=== PATIENT | female | born 1980 | race Caucasian/White ===

== ENCOUNTER 2018-01-30 10:09 | Observation (INO) | payer OTHER ==
[2018-01-30] MEDS ORDERED: SODIUM CHLORIDE 0.9% 500 ML IV STA (10:49)
[2018-01-30] MEDS ORDERED: ONDANSETRON 4 MG/2 ML VIAL IVP STA (10:49)
[2018-01-30] MEDS ORDERED: HYDROmorphone 0.5 MG/0.5 ML SYRINGE IVP STA (10:49)
--- NOTE | 2018-01-30 10:58 | ED ---
General Adult HPI - General Chief complaint: Abdominal Pain Stated complaint: LOWER ABDOMINAL PAIN Time Seen by Provider: 01/30/18 10:20 Source: patient, RN notes reviewed Mode of arrival: ambulatory Limitations: no limitations - History of Present Illness Initial comments: This is a 37-year-old female presents emergency Department with no previous. abdominal surgeries. Patient states last evening she started having right lower quadrant abdominal pain and it Progressively worse. Patient states she was able to fall sleep at midnight and the pain kept her the rest of the night. Patient states the drive here was extremely painful anytime a bump was. Patient states she's not nauseous and she is not had any vomiting or diarrhea. Patient denies any fever or chills. Patient denies any chest pain difficulty breathing shortness of breath. Patient denies any dysuria hematuria urinary frequency. - Related Data Home Medications Medication Instructions Recorded Confirmed No Known Home Medications [No 01/30/18 01/30/18 Known Home Medications] Allergies Allergy/AdvReac Type Severity Reaction Status Date / Time bacitracin Allergy Rash/Hives Verified 01/30/18 12:17 [From Neosporin ([id number])] neomycin Allergy Rash/Hives Verified 01/30/18 12:17 [From Neosporin ([id number])] polymyxin B Allergy Rash/Hives Verified 01/30/18 12:17 [From Neosporin ([id number])] Review of Systems ROS Statement: Those systems with pertinent positive or pertinent negative responses have been documented in the HPI. ROS Other: All systems not noted in ROS Statement are negative. Past Medical History Past Medical History: No Reported History History of Any Multi-Drug Resistant Organisms: None Reported Additional Past Surgical History / Comment(s): back sx Past Psychological History: No Psychological Hx Reported Smoking Status: Never smoker Past Alcohol Use History: Occasional General Exam - General Exam Comments Initial Comments: GENERAL: Patient is well-developed and well-nourished. Patient is nontoxic and well- hydrated and is in mild distress. ENT: Neck is soft and supple. No significant lymphadenopathy is noted. Oropharynx is clear. Moist mucous membranes. Neck has full range of motion without eliciting any pain. EYES: The sclera were anicteric and conjunctiva were pink and moist. Extraocular movements were intact and pupils were equal round and reactive to light. Eyelids were unremarkable. PULMONARY: Unlabored respirations. Good breath sounds bilaterally. No audible rales rhonchi or wheezing was noted. CARDIOVASCULAR: There is a regular rate and rhythm without any murmurs gallops or rubs. ABDOMEN: Patient's right lower quadrant tenderness with rebound.. No palpable organomegaly was noted. There is no palpable pulsatile mass. SKIN: Skin is clear with no lesions or rashes and otherwise unremarkable. NEUROLOGIC: Patient is alert and oriented x3. Cranial nerves II through XII are grossly intact. Motor and sensory are also intact. Normal speech, volume and content. Symmetrical smile. MUSCULOSKELETAL: Normal extremities with adequate strength and full range of motion. No lower extremity swelling or edema. No calf tenderness. LYMPHATICS: No significant lymphadenopathy is noted PSYCHIATRIC: Normal psychiatric evaluation. Normal interpersonal interactions appears functionally intact in deals appropriately with others. No signs of depression. No signs of anxiety. Limitations: no limitations Course Vital Signs 01/30/18 10:23 Temperature 98.2 F Pulse Rate 79 Respiratory 18 Rate Blood Pressure 107/62 O2 Sat by Pulse 100 Oximetry Medical Decision Making - Medical Decision Making CAT scan shows some inflammation and some thickening of the ileocecal junction. However the appendix couldn't be visualized. I went back into reevaluate the patient she was still having rebound tenderness in the right lower quadrant. I admitted the patient because of concern for acute appendicitis Dr. Roa accepted the patient I wrote admitting orders. - Lab Data Result diagrams: 01/30/18 10:40 01/30/18 10:40 Lab Results 01/30/18 01/30/18 01/30/18 Range/Units 10:40 10:40 10:40 WBC 6.7 (3.8-10.6) k/uL RBC 4.41 (3.80-5.40) m/uL Hgb 13.3 (11.4-16.0) gm/dL Hct 39.9 (34.0-46.0) % MCV 90.6 (80.0-100.0) fL MCH 30.2 (25.0-35.0) pg MCHC 33.4 (31.0-37.0) g/dL RDW 13.5 (11.5-15.5) % Plt Count 161 (150-450) k/uL Neutrophils % 71 % Lymphocytes % 22 % Monocytes % 5 % Eosinophils % 0 % Basophils % 0 % Neutrophils # 4.8 (1.3-7.7) k/uL Lymphocytes # 1.5 (1.0-4.8) k/uL Monocytes # 0.4 (0-1.0) k/uL Eosinophils # 0.0 (0-0.7) k/uL Basophils # 0.0 (0-0.2) k/uL Sodium 141 (137-145) mmol/L Potassium 4.1 (3.5-5.1) mmol/L Chloride 106 (98-107) mmol/L Carbon Dioxide 24 (22-30) mmol/L Anion Gap 11 mmol/L BUN 10 (7-17) mg/dL Creatinine 0.70 (0.52-1.04) mg/dL Est GFR (CKD-EPI)AfAm >90 (>60 ml/min/1.73 sqM) Est GFR (CKD-EPI)NonAf >90 (>60 ml/min/1.73 sqM) Glucose 85 (74-99) mg/dL Calcium 9.3 (8.4-10.2) mg/dL Total Bilirubin 0.7 (0.2-1.3) mg/dL AST 29 (14-36) U/L ALT 32 (9-52) U/L Alkaline Phosphatase 53 (38-126) U/L Total Protein 6.9 (6.3-8.2) g/dL Albumin 4.4 (3.5-5.0) g/dL Amylase 44 (30-110) U/L Lipase 62 (23-300) U/L Urine Color Light Yellow Urine Appearance Clear (Clear) Urine pH 7.5 (5.0-8.0) Ur Specific Golden 1.005 (1.001-1.035) Urine Protein Negative (Negative) Urine Glucose (UA) Negative (Negative) Urine Ketones Negative (Negative) Urine Blood Negative (Negative) Urine Nitrite Negative (Negative) Urine Bilirubin Negative (Negative) Urine Urobilinogen <2.0 (<2.0) mg/dL Ur Leukocyte Esterase Negative (Negative) Disposition Clinical Impression: Acute abdomen Disposition: ADMITTED IP TO THIS [facility] Referrals: Alberto Stanton MD [Primary Care Provider] - 1-2 days Time of Disposition: 12:47
[2018-01-30 11:17] LABS: Basophils % (A) 0 %; Eosinophils % (A) 0 %; HCT 39.9 % (34.0-46.0); HGB 13.3 gm/dL (11.4-16.0); Lymphocytes # (A) 1.5 k/uL (1.0-4.8); Lymphocytes % (A) 22 %; MCH 30.2 pg (25.0-35.0); MCHC 33.4 g/dL (31.0-37.0); MCV 90.6 fL (80.0-100.0); Mean Platelet Volume 9.4; Monocytes # (A) 0.4 k/uL (0-1.0); Monocytes % (A) 5 %; Neutrophils # (A) 4.8 k/uL (1.3-7.7); Neutrophils % (A) 71 %; Platelet Count 161 k/uL (150-450); RBC 4.41 m/uL (3.80-5.40); RDW 13.5 % (11.5-15.5); WBC 6.7 k/uL (3.8-10.6)
[2018-01-30 11:22] LABS: Appearance,Urine Clear (Clear); Bilirubin,Urine Negative (Negative); Blood,Urine Negative (Negative); Color,Urine Light Yellow; Glucose,Urine (UA) Negative (Negative); Ketones,Urine Negative (Negative); Leukocyte Esterase,Urine Negative (Negative); Nitrite,Urine Negative (Negative); PH, Urine 7.5 (5.0-8.0); Protein,Urine Negative (Negative); Specific Gravity,Urine 1.005 (1.001-1.035); Urobilinogen,Urine <2.0 mg/dL (<2.0)
[2018-01-30 11:28] LABS: ALT 32 U/L (9-52); AST 29 U/L (14-36); Albumin 4.4 g/dL (3.5-5.0); Alkaline Phosphatase 53 U/L (38-126); Amylase 44 U/L (30-110); Anion Gap 11 mmol/L; Blood Urea Nitrogen 10 mg/dL (7-17); Calcium 9.3 mg/dL (8.4-10.2); Carbon Dioxide 24 mmol/L (22-30); Chloride 106 mmol/L (98-107); Glucose 85 mg/dL (74-99); Lipase 62 U/L (23-300); Potassium 4.1 mmol/L (3.5-5.1); Sodium 141 mmol/L (137-145); Total Bilirubin 0.7 mg/dL (0.2-1.3); Total Protein 6.9 g/dL (6.3-8.2)
--- NOTE | 2018-01-30 12:07 | CT ---
EXAMINATION TYPE: CT abdomen pelvis w con DATE OF EXAM: 01/30/2018 COMPARISON: NONE HISTORY: 37-year-old female Right lower quadrant pain TECHNIQUE: Contiguous axial scanning of the abdomen and pelvis following administration of 100 ml Iso sonido 300 IV contrast. Delayed images through the kidneys and coronal/sagittal reconstructions perform ed. CT DLP: 1106 mGycm Automated exposure control for dose reduction was used. FINDINGS: Heart normal size without pericardial effusion. 6 mm subpleural pulmonary nodule, axial image 5, posterior left lower lobe probably represents an are a of nodular atelectasis. No pleural effusion. 1.2 cm lobulated cyst left hepatic dome. Additional 1.5 cm right hepatic lobe cyst. Portal venous sys tem is patent. No biliary ductal dilatation. Gallbladder, adrenal glands, left kidney, and pancreas show no gross abnormality. Spleen upper limits of normal in size at 13.8 cm. Partial duplication of the right renal collecting system. 2 ureters combine at the upper ureteric lev el. Subcentimeter hypodensity lateral right kidney too small for accurate CT characterization, likely tiny cyst. The appendix is not discretely visualized. However, there is some focal wall thickening along the cec um and at the ileocecal junction, for example, axial image 45 and 50. Some mild fat stranding is pres ent near as well. Scattered nonenlarged mesenteric lymph nodes are noted. Mild stool burden. Uterus is anteverted. Prominent left periuterine varices with a dilated left gonadal vein. Crenulated peripherally enhancing 1.4 cm lesion in the left ovary suggestive of a corpus luteum or recently rup tured follicle. There is small to moderate pelvic free fluid likely physiologic. Right ovary not well delineated from small bowel loops. Bladder is urine distended. Bones: Degenerative disc disease L5-S1. No osseous destructive process. IMPRESSION: 1. Some cecal and ileocecal wall thickening with mild adjacent inflammation. Correlate for colitis/en terocolitis rather than acute appendicitis as the appendix could not be discretely visualized. Short interval follow-up as clinically indicated. 2. Large left parauterine varices and a dilated left gonadal vein can be seen in the setting of pelvi c congestion syndrome. 3. Mild to moderate cul-de-sac free fluid probably physiologic given findings in the left ovary sugge sting a recently ruptured follicle or corpus luteum.
[2018-01-30] MEDS ORDERED: PIPERACILLIN-TAZOBACTAM 3.375 GM in DEXTROSE/WATER 1 50ML.BAG IVPB STA (12:51)
[2018-01-30] MEDS ORDERED: SODIUM CHLORIDE 0.9% 1,000 ML IV ONE (12:51)
[2018-01-30 14:13] VITALS: BMI 24.3
[2018-01-30] MEDS: HYDROmorphone 0.5 MG/0.5 ML SYRINGE IVP PRN ×4 (14:15→23:41)
[2018-01-30] MEDS ORDERED: ONDANSETRON 4 MG/2 ML VIAL IVP PRN (20:38)
--- NOTE | 2018-01-30 20:38 | P.GSHP ---
History of Present Illness H&P Date: 01/30/18 37-year-old female presented to the emergency department with complaints of sudden onset of abdominal pain. She states that the pain was in the right lower quadrant. She denied any nausea episodes and denied any emesis. She states she has never had this pain previously. She states that she has been having normal bowel function. She states she has not had bowel function since the pain began. She denies ever having a colonoscopy. She denies any inflammatory bowel disease. She is currently seen while in the hospital bed and is comfortable with pain medication. She denies any fevers, chills, chest pain or shortness of breath. Her laboratory values do not show a leukocytosis. She does not have a left shift. - Review of Systems All systems: negative Past Medical History Past Medical History: No Reported History History of Any Multi-Drug Resistant Organisms: None Reported Additional Past Surgical History / Comment(s): back sx Past Psychological History: No Psychological Hx Reported Smoking Status: Never smoker Past Alcohol Use History: Occasional Medications and Allergies Home Medications Medication Instructions Recorded Confirmed Type No Known Home Medications [No 01/30/18 01/30/18 History Known Home Medications] Allergies Allergy/AdvReac Type Severity Reaction Status Date / Time bacitracin Allergy Rash/Hives Verified 01/30/18 12:17 [From Neosporin ([id number])] neomycin Allergy Rash/Hives Verified 01/30/18 12:17 [From Neosporin ([id number])] polymyxin B Allergy Rash/Hives Verified 01/30/18 12:17 [From Neosporin ([id number])] Surgical - Exam Osteopathic Statement: *. No significant issues noted on an osteopathic structural exam other than those noted in the History and Physical/Consult. Vital Signs Temp Pulse Resp BP Pulse Ox 98.2 F 79 18 107/62 100 01/30/18 10:23 01/30/18 10:23 01/30/18 10:23 01/30/18 10:23 01/30/18 10:23 - General well nourished, no distress - Eyes normal ocular movement - ENT normal mucosa, no hearing loss - Neck trachea midline - Respiratory No difficulty with respiration - Abdomen Soft, tender to palpation and percussion in the right lower quadrant, nondistended, no rebound, no guarding - Neurologic normal sensation - Psychiatric oriented to time, oriented to person, oriented to place, speech is normal Results - Labs 01/30/18 10:40 01/30/18 10:40 Diabetes panel 01/30/18 Range/Units 10:40 Sodium 141 (137-145) mmol/L Potassium 4.1 (3.5-5.1) mmol/L Chloride 106 (98-107) mmol/L Carbon Dioxide 24 (22-30) mmol/L BUN 10 (7-17) mg/dL Creatinine 0.70 (0.52-1.04) mg/dL Glucose 85 (74-99) mg/dL Calcium 9.3 (8.4-10.2) mg/dL AST 29 (14-36) U/L ALT 32 (9-52) U/L Alkaline Phosphatase 53 (38-126) U/L Total Protein 6.9 (6.3-8.2) g/dL Albumin 4.4 (3.5-5.0) g/dL Calcium panel 01/30/18 Range/Units 10:40 Calcium 9.3 (8.4-10.2) mg/dL Albumin 4.4 (3.5-5.0) g/dL Pituitary panel 01/30/18 Range/Units 10:40 Sodium 141 (137-145) mmol/L Potassium 4.1 (3.5-5.1) mmol/L Chloride 106 (98-107) mmol/L Carbon Dioxide 24 (22-30) mmol/L BUN 10 (7-17) mg/dL Creatinine 0.70 (0.52-1.04) mg/dL Glucose 85 (74-99) mg/dL Calcium 9.3 (8.4-10.2) mg/dL Adrenal panel 01/30/18 Range/Units 10:40 Sodium 141 (137-145) mmol/L Potassium 4.1 (3.5-5.1) mmol/L Chloride 106 (98-107) mmol/L Carbon Dioxide 24 (22-30) mmol/L BUN 10 (7-17) mg/dL Creatinine 0.70 (0.52-1.04) mg/dL Glucose 85 (74-99) mg/dL Calcium 9.3 (8.4-10.2) mg/dL Total Bilirubin 0.7 (0.2-1.3) mg/dL AST 29 (14-36) U/L ALT 32 (9-52) U/L Alkaline Phosphatase 53 (38-126) U/L Total Protein 6.9 (6.3-8.2) g/dL Albumin 4.4 (3.5-5.0) g/dL - Imaging CT scan - abdomen: report reviewed, image reviewed (CT of the abdomen and pelvis is reviewed with thickening of the ileocecal region. Colitis versus enteritis is noted.) CT scan - pelvis: report reviewed, image reviewed Assessment and Plan (1) Colitis Narrative/Plan: 37-year-old female with right lower quadrant pain and CT abdomen finding of colitis - Continue antibiotic of Zosyn - Continue IV fluids - Pain control - Keep patient nothing by mouth for now - Will continue serial abdominal exams - Further recommendations after patient has received antibiotic dosage and is kept nothing by mouth Current Visit: Yes Status: Acute Code(s): K52.9 - NONINFECTIVE GASTROENTERITIS AND COLITIS, UNSPECIFIED SNOMED Code(s): 04001498
[2018-01-30] MEDS: PIPERACILLIN-TAZOBACTAM 3.375 GM in DEXTROSE/WATER 1 50ML.BAG IVPB SCH (23:33)
[2018-01-30] MEDS: SODIUM CHLORIDE 0.9% 1,000 ML IV SCH (23:33)
[2018-01-31 07:34] LABS: Basophils % (A) 0 %; Eosinophils % (A) 1 %; HCT 35.4 % (34.0-46.0); HGB 11.6 gm/dL (11.4-16.0); Lymphocytes # (A) 1.3 k/uL (1.0-4.8); Lymphocytes % (A) 40 %; MCH 30.5 pg (25.0-35.0); MCHC 32.7 g/dL (31.0-37.0); MCV 93.4 fL (80.0-100.0); Mean Platelet Volume 8.8; Monocytes # (A) 0.2 k/uL (0-1.0); Monocytes % (A) 5 %; Neutrophils # (A) 1.7 k/uL (1.3-7.7); Neutrophils % (A) 52 %; Platelet Count 123 k/uL (150-450); RBC 3.79 m/uL (3.80-5.40); RDW 13.9 % (11.5-15.5); WBC 3.3 k/uL (3.8-10.6)
[2018-01-31 07:38] LABS: Anion Gap 10 mmol/L; Blood Urea Nitrogen 10 mg/dL (7-17); Calcium 8.5 mg/dL (8.4-10.2); Carbon Dioxide 24 mmol/L (22-30); Chloride 105 mmol/L (98-107); Glucose 72 mg/dL (74-99); Potassium 3.7 mmol/L (3.5-5.1); Sodium 139 mmol/L (137-145)
[2018-01-31] MEDS: PIPERACILLIN-TAZOBACTAM 3.375 GM in DEXTROSE/WATER 1 50ML.BAG IVPB SCH ×2 (08:14→15:07)
[2018-01-31] MEDS: SODIUM CHLORIDE 0.9% 1,000 ML IV SCH ×2 (08:14→18:12)
[2018-01-31] MEDS ORDERED: ACETAMINOPHEN IV (For NPO) 1,000 MG in EMPTY BAG 1 BAG IVPB SCH (09:00)
[2018-01-31] MEDS ORDERED: ACETAMINOPHEN IV (For NPO) 1,000 MG in EMPTY BAG 1 BAG IVPB PRN (09:54)
[2018-01-31 14:45] VITALS: RESP 16
--- NOTE | 2018-01-31 16:07 | P.PN ---
Subjective Progress Note Date: 01/31/18 Patient seen and examined at bedside. She states that her abdominal pain is mostly resolved today. She states she has a very mild achy feeling in her right lower quadrant, but greatly improved from previous exam. She denies any nausea or emesis. The patient states that she is hungry. She states that she is having flatus but has not had a bowel movement. Objective - Vital Signs Vital signs: Vital Signs Temp 97.1 F L 01/31/18 14:45 Pulse 74 01/31/18 14:45 Resp 16 01/31/18 14:45 BP 118/60 01/31/18 14:45 Pulse Ox 99 01/31/18 14:45 Intake & Output 01/30/18 01/31/18 01/31/18 18:59 06:59 18:59 Intake Total 20 2710 930 Balance 20 2710 930 Weight 70.307 kg Intake: Intake, IV Titration 20 1480 750 Amount Piperacillin-Tazobactam 3 50 50 .375 gm In Dextrose/Water 1 50ml.bag @ 12.5 mls/hr IVPB Q8HR [facility] Rx#: [id number] Sodium Chloride 0.9% 1, 20 000 ml @ 100 mls/hr IV . Q10H [facility] Rx#:[id number] Sodium Chloride 0.9% 1, 1430 700 000 ml @ 100 mls/hr IV . Q10H [facility] Rx#:[id number] Oral 1230 180 Other: Voiding Method Toilet Toilet # Voids 1 2 1 # Bowel Movements 0 # Emeses 0 - Constitutional General appearance: Present: cooperative, no acute distress - EENT Eyes: Present: PERRLA ENT: Present: hearing grossly normal - Neck Neck: Present: normal ROM - Respiratory Details: No difficulty with respiration - Gastrointestinal Gastrointestinal Comment(s): Nontender to palpation, and nontender to percussion, soft, nondistended, no rebound, no guarding - Psychiatric Psychiatric: Present: A&O x's 3, appropriate affect - Labs CBC & Chem 7: 01/31/18 06:33 01/31/18 06:33 Labs: Abnormal Lab Results - Last 24 Hours (Table) 01/31/18 01/31/18 Range/Units 06:33 06:33 WBC 3.3 L (3.8-10.6) k/uL RBC 3.79 L (3.80-5.40) m/uL Plt Count 123 L (150-450) k/uL Glucose 72 L (74-99) mg/dL Microbiology - Last 24 Hours (Table) 01/30/18 13:34 Blood Culture - Preliminary Blood No Growth after 24 hours Assessment and Plan (1) Colitis Narrative/Plan: 37-year-old female with right lower quadrant pain and CT abdomen finding of colitis - Continue antibiotic of Zosyn - Continue IV fluids - Pain control - The patient's pain is greatly improved, we'll begin clear liquid diet - I did discuss with the patient if any pain continues to persist, plan for diagnostic laparoscopy to rule out any additional acute process beyond colitis, if pain resolves, likely discharge within 24-48 hours with antibiotics and plan for future colonoscopy. The patient is agreeable to this plan Current Visit: Yes Status: Acute Code(s): K52.9 - NONINFECTIVE GASTROENTERITIS AND COLITIS, UNSPECIFIED SNOMED Code(s): 86825644
[2018-02-01] MEDS: PIPERACILLIN-TAZOBACTAM 3.375 GM in DEXTROSE/WATER 1 50ML.BAG IVPB SCH ×2 (00:41→09:08)
[2018-02-01] MEDS: SODIUM CHLORIDE 0.9% 1,000 ML IV SCH (03:47)
[2018-02-01 07:22] LABS: Basophils % (A) 0 %; Eosinophils % (A) 1 %; HCT 36.5 % (34.0-46.0); HGB 11.9 gm/dL (11.4-16.0); Lymphocytes # (A) 1.5 k/uL (1.0-4.8); Lymphocytes % (A) 43 %; MCH 30.2 pg (25.0-35.0); MCHC 32.5 g/dL (31.0-37.0); MCV 92.9 fL (80.0-100.0); Mean Platelet Volume 8.9; Monocytes # (A) 0.2 k/uL (0-1.0); Monocytes % (A) 6 %; Neutrophils # (A) 1.7 k/uL (1.3-7.7); Neutrophils % (A) 48 %; Platelet Count 147 k/uL (150-450); RBC 3.93 m/uL (3.80-5.40); RDW 13.6 % (11.5-15.5); WBC 3.6 k/uL (3.8-10.6)
[2018-02-01 07:31] LABS: Anion Gap 9 mmol/L; Blood Urea Nitrogen 8 mg/dL (7-17); Calcium 8.7 mg/dL (8.4-10.2); Carbon Dioxide 24 mmol/L (22-30); Chloride 107 mmol/L (98-107); Glucose 81 mg/dL (74-99); Potassium 4.3 mmol/L (3.5-5.1); Sodium 140 mmol/L (137-145)
[2018-02-01 07:58] VITALS: BP 106/69; PULSE 65; TEMP 98.8
--- NOTE | 2018-02-01 12:46 | P.DS ---
Providers Date of admission: 01/30/18 12:52 Attending physician: Brooke Roa DO Primary care physician: Alberto Stanton - Discharge Diagnosis(es) (1) Colitis Current Visit: Yes Status: Acute Hospital Course: 29-year-old female presented to the emergency department with lower quadrant and right lower quadrant abdominal pain. On workup in the emergency department CT of the abdomen and pelvis showed a colitis/enteritis. She was admitted for observation due to her pain level. The patient was started on antibiotics. Within 24 hours, the patient states her pain was relieved. She was then started on a clear liquid diet and diet was advanced. Currently, the patient denies any abdominal pain. Denies any nausea vomiting. Has no leukocytosis. She is tolerating a soft diet. She is stable for discharge. She was instructed to return to the emergency department with any sudden increase in pain for further imaging and workup. Otherwise, she is to follow with her surgeon to be evaluated for colonoscopy. Patient Condition at Discharge: Good Plan - Discharge Summary Discharge Rx Participant: Yes New Discharge Prescriptions: New Amoxic-Pot Clav 875-125Mg [Augmentin 875-125] 1 tab PO Q12HR #20 tablet metroNIDAZOLE [Flagyl] 500 mg PO Q8HR #30 tab Discharge Medication List Amoxic-Pot Clav 875-125Mg [Augmentin 875-125] 1 tab PO Q12HR #20 tablet [Rx] metroNIDAZOLE [Flagyl] 500 mg PO Q8HR #30 tab 02/01/18 [Rx] Follow up Appointment(s)/Referral(s): Alberto Stanton MD [Primary Care Provider] - 02/04/18 8:30 am Brooke Roa DO [Doctor of Osteopathic Medicine] - 02/11/18 10:00 am Activity/Diet/Wound Care/Special Instructions: Continue antibiotics as prescribed If any significant pain returns, return to the emergency department immediately for CT of the abdomen and pelvis Follow-up with surgeon in 10 days for plan for future colonoscopy Discharge Disposition: HOME SELF-CARE
== END 2018-02-01 14:33 | disposition home or self-care (01) ==
LOC: EC 10:09 → 3SUR 12:52
PROVIDERS: ADMIT Surgery; ATTEND Surgery
DX: K52.9 Noninfective gastroenteritis and colitis, unspecified (principal); Z88.1 Allergy status to other antibiotic agents
CPT/HCPCS: 99285 ×2; 96365 ×2; 96375 ×3; 96361 ×5; 96376; 96366 ×3; 96367; 36415; 80053; 80048 ×2; 82150; 83690; 85025 ×3; 81003; 87040; 74177; G0378 ×3; J2405; J2543 ×3; J0131; J1170; Q9967

== ENCOUNTER 2018-02-26 11:44 | Day surgery (SDC) | payer OTHER ==
[2018-02-21 15:42] VITALS: BMI 24.3
[~2018-02-26 11:44] MED LIST: LACTATED RINGERS 1,000 ML IV SCH; LIDOCAINE 1% 20 ML VIAL (10MG/ML) FOR IV START INTRADERMA PRN; MIDAZOLAM 2 MG/2 ML VIAL IV PRN
[2018-02-26 13:01] VITALS: TEMP 98.7
[2018-02-26] MEDS ORDERED: LIDOCAINE 1% INJ 10MG/ML (20 ML MDV) ONE (13:43)
[2018-02-26] MEDS ORDERED: PROPOFOL 10 MG/ML 20 ML VIAL IV ONE (13:43)
[2018-02-26] MEDS ORDERED: MIDAZOLAM 2 MG/2 ML VIAL ONE (13:43)
[2018-02-26] MEDS ORDERED: fentaNYL (PF) 50 MCG/ML 2 ML AMP ONE (13:43)
--- NOTE | 2018-02-26 14:17 | P.PCN ---
Date of Procedure: 02/26/18 Procedure(s) Performed: Procedure: Total colonoscopy. Preoperative diagnosis: History of colitis and abnormal CT. Postoperative diagnosis: Exam of the colon and terminal ileum within normal limits. Preparation: HalfLytely prep. Sedation: Was provided by anesthesia. Brief clinical history: The patient is a 37-year-old female who was hospitalized between January 30 and February [address] of the abdomen showed cecal and ileocecal wall thickening with adjacent inflammation. There was fluid in the cul-de-sac. The patient has since improved and she was scheduled for this evaluation to rule out with confidence inflammatory bowel disease or other pathology. Procedure: With the patient on her left lateral decubitus position and after informed consent and adequate sedation, the perianal area was inspected and it did not show any fissures or fistulas. There were no masses felt on digital rectal examination. The Olympus CFQ 160L video colonoscope was then inserted in the rectum in the usual fashion and advanced to the cecum. I intubated the ileocecal valve and examined the terminal ileum. Terminal ileum and colon appeared healthy with no edema, erythema, friability, ulceration, exudation or spontaneous bleeding. There were no polyps or tumors seen as or any obvious diverticular disease or other pathology. I retroflexed the endoscope in the rectum before the endoscope was withdrawn. The patient tolerated the procedure well. Plan: The patient was reassured. Since she is improved, I did not recommend any further studies or specific treatments. She will follow-up with you as planned and further plans can be made based on her course.
[2018-02-26 14:27] VITALS: BP 118/72; PULSE 85; RESP 18
== END 2018-02-26 14:54 | disposition home or self-care (01) ==
LOC: ORWHC2ENDO 11:44
DX: K52.9 Noninfective gastroenteritis and colitis, unspecified (principal); Z88.3 Allergy status to other anti-infective agents
CPT/HCPCS: 81025; 45378; J2250; J2001; J3010; J2704

== ENCOUNTER 2023-09-20 12:52 | Day surgery (SDC) | payer BC, OTHER ==
[2023-09-20 13:35] VITALS: TEMP 98
--- NOTE | 2023-09-20 14:40 | US ---
ULTRASOUND GUIDED FNA THYROID BIOPSY: CLINICAL HISTORY: Right thyroid nodule FINDINGS: The procedure was explained to the patient. The risks, complications, benefits and alternatives were discussed and any questions were answered. Informed consent was obtained. Patient was placed supin e on the ultrasound table and prepped and draped in the usual sterile fashion. Utilizing a 25 gauge needle, five passes were made into the requested right thyroid nodule. Patient was stable throughout the procedure. Pathology is pending. All elements of maximal barrier technique were utilized. IMPRESSION: 1. Successful ultrasound guided FNA thyroid biopsy.
[2023-09-20 15:07] VITALS: BP 121/78; PULSE 73; RESP 18
== END 2023-09-20 14:45 | disposition home or self-care (01) ==
LOC: RADPROMAIN 12:52
PROVIDERS: ATTEND Internal Medicine Endocrinology, Diabetes & Metabolism
DX: E04.1 Nontoxic single thyroid nodule (principal)
CPT/HCPCS: 10005; 88173; 88305